=== PATIENT | female | born 1985 | race Caucasian/White ===

== ENCOUNTER → 2017-02-21 | Outpatient (CLI) | payer MEDICAID | LOC: FIMAGING 14:12 | PROVIDERS: ATTEND Midwife | DX: O09.891 Supervision of other high risk pregnancies, first trimester (principal); Z3A.12 12 weeks gestation of pregnancy ==

== ENCOUNTER → 2017-04-11 | Outpatient (CLI) | payer MEDICAID | LOC: FIMAGING 07:40 | PROVIDERS: ATTEND Midwife | DX: O34.02 Maternal care for unspecified congenital malformation of uterus, second trimester (principal); O26.872 Cervical shortening, second trimester; Z3A.19 19 weeks gestation of pregnancy ==

== ENCOUNTER → 2017-04-19 | Outpatient (CLI) | payer MEDICAID | LOC: FIMAGING 15:06 | PROVIDERS: ATTEND Midwife | DX: O26.873 Cervical shortening, third trimester (principal); Q51.810 Arcuate uterus; Z3A.20 20 weeks gestation of pregnancy ==

== ENCOUNTER → 2017-04-26 | Outpatient (CLI) | payer MEDICAID | LOC: FIMAGING 09:53 | PROVIDERS: ATTEND Midwife | DX: O34.42 Maternal care for other abnormalities of cervix, second trimester (principal); Z3A.21 21 weeks gestation of pregnancy ==

== ENCOUNTER → 2017-05-03 | Outpatient (CLI) | payer MEDICAID | LOC: FIMAGING 14:23 | PROVIDERS: ATTEND Midwife | DX: O34.42 Maternal care for other abnormalities of cervix, second trimester (principal); Z3A.22 22 weeks gestation of pregnancy ==

== ENCOUNTER → 2017-05-09 | Outpatient (CLI) | payer MEDICAID | LOC: FIMAGING 08:55 | PROVIDERS: ATTEND Midwife | DX: O26.872 Cervical shortening, second trimester (principal); Z3A.23 23 weeks gestation of pregnancy ==